=== PATIENT | male | born 2000 | race Caucasian/White ===

== ENCOUNTER 2021-02-11 21:42 | Emergency (ER) | payer OTHER | END 2021-02-12 01:00 | disposition home or self-care (01) | LOC: ERS 21:42 | DX: S63.501A Unspecified sprain of right wrist, initial encounter (principal); S20.219A Contusion of unspecified front wall of thorax, initial encounter; Y04.0XXA Assault by unarmed brawl or fight, initial encounter | CPT/HCPCS: 71046 ==